=== PATIENT | male | born 1975 | race Caucasian/White ===

== ENCOUNTER → 2016-07-22 | Outpatient (CLI) | payer OTHER ==
[~2016-07-22] MED LIST: /DULO30CA OR; BABY81CH OR; BENA40TA2 OR; GLUC1000 OR; HYDR25TA6 PO; LYRI300C OR; NORV5TAB OR; SIMV20TA2 OR; VOLT1GEL EX; tricor OR
== END ==
LOC: M LAB 09:16
PROVIDERS: ATTEND Family Medicine
DX: E11.9 Type 2 diabetes mellitus without complications (principal)

== ENCOUNTER 2017-01-24 09:13 | Emergency (ER) | payer OTHER ==
[~2017-01-24] VITALS: Ht 172.7 cm; Wt 120.0 kg
[2017-01-24 09:14] VITALS: BP 115/81
[2017-01-24] MEDS ORDERED: ALOG25TA PO (09:23)
[2017-01-24] MEDS ORDERED: INVO300T PO (09:23)
[2017-01-24] MEDS ORDERED: ATOR1TAB19 PO (09:23)
[2017-01-24] MEDS ORDERED: BENA40TA7 PO (09:23)
[2017-01-24] MEDS ORDERED: METF10004 PO (09:23)
[2017-01-24] MEDS ORDERED: MUCI600T37 PO (11:12)
[2017-01-24] MEDS ORDERED: AUGM875T28 PO (11:12)
[2017-01-24] MEDS ORDERED: CLAR1TAB2 PO (11:12)
[2017-01-24] MEDS ORDERED: AUGMENTIN 875 MG TAB PO ONE (11:15)
[2017-01-24] MEDS ORDERED: IBUPROFEN 800 MG TAB PO ONE (11:15)
== END 2017-01-24 11:20 | disposition home or self-care (01) ==
LOC: M ED 09:13
DX: J01.90 Acute sinusitis, unspecified (principal); H66.93 Otitis media, unspecified, bilateral; K02.9 Dental caries, unspecified

== ENCOUNTER → 2017-05-01 | Outpatient (CLI) | payer OTHER ==
[2017-05-01 11:33] LABS: ESTIMATED AVERAGE GLUCOSE 246 MG/DL (60-110); HEMOGLOBIN A1c 10.2 %
[2017-05-01 11:37] LABS: ALBUMIN 3.9 GM/DL (3.2-5.2); ALBUMIN/GLOBULIN RATIO 1.22 (1.00-1.93); ALKALINE PHOSPHATASE 98 U/L (45-117); ALT/SGPT 34 U/L (12-78); ANION GAP 7 MEQ/L (8-16); AST/SGOT 18 U/L (7-37); BILIRUBIN,TOTAL 0.6 MG/DL (0.2-1.0); BLOOD UREA NITROGEN 16 MG/DL (7-18); CALCIUM LEVEL 8.5 MG/DL (8.5-10.1); CARBON DIOXIDE LEVEL 24 MEQ/L (21-32); CHLORIDE LEVEL 107 MEQ/L (98-107); CHOLESTEROL LEVEL 135 MG/DL (<200); CREATININE FOR GFR 0.88 MG/DL (0.70-1.30); GLOMERULAR FILTRATION RATE > 60.0 (>60); GLUCOSE, FASTING 239 MG/DL (70-105); HDL CHOLESTEROL 30 MG/DL (>40); NON-HDL-C 105 MG/DL; POTASSIUM SERUM 4.3 MEQ/L (3.5-5.1); SODIUM LEVEL 138 MEQ/L (136-145); TOTAL PROTEIN 7.1 GM/DL (6.4-8.2); TRIGLYCERIDES LEVEL 1032 MG/DL (<150)
== END ==
LOC: M LAB 10:28
DX: E11.8 Type 2 diabetes mellitus with unspecified complications (principal)
CPT/HCPCS: 80053

== ENCOUNTER → 2017-11-21 | Outpatient (CLI) | payer OTHER ==
[2017-11-21 14:45] LABS: ANION GAP 8 MEQ/L (8-16); BLOOD UREA NITROGEN 11 MG/DL (7-18); CALCIUM LEVEL 9.1 MG/DL (8.5-10.1); CARBON DIOXIDE LEVEL 25 MEQ/L (21-32); CHLORIDE LEVEL 109 MEQ/L (98-107); CREATININE FOR GFR 1.06 MG/DL (0.70-1.30); GLOMERULAR FILTRATION RATE > 60.0 (>60); GLUCOSE, FASTING 120 MG/DL (70-100); POTASSIUM SERUM 4.2 MEQ/L (3.5-5.1); SODIUM LEVEL 142 MEQ/L (136-145)
[2017-11-21 14:57] LABS: CREATININE, URINE 73.2 MG/DL; MALB URINE SIEMENS 29.4 MG/L; MAU/CREAT RATIO 40.1 MCG/MG (0.0-30.0)
[2017-11-21 15:52] LABS: ESTIMATED AVERAGE GLUCOSE 137 MG/DL (60-110); HEMOGLOBIN A1c 6.4 %
== END ==
LOC: M LAB 13:37
DX: E11.8 Type 2 diabetes mellitus with unspecified complications (principal)
CPT/HCPCS: 83036

== ENCOUNTER → 2018-05-28 | Outpatient (CLI) | payer OTHER ==
[~2018-05-28] MED LIST changes: +ALOG25TA PO; +ATOR1TAB19 PO; +AUGM875T28 PO; +BENA40TA7 PO; +CLAR1TAB2 PO; +INVO300T PO; +METF10004 PO; +MUCI600T37 PO
[2018-05-28 10:38] LABS: CREATININE, URINE 70.9 MG/DL; MALB URINE SIEMENS 38.5 MG/L; MAU/CREAT RATIO 54.3 MCG/MG (0.0-30.0)
[2018-05-28 10:43] LABS: ALT/SGPT 33 U/L (12-78); BILIRUBIN,TOTAL 0.7 MG/DL (0.2-1.0); BLOOD UREA NITROGEN 12 MG/DL (7-18); CALCIUM LEVEL 8.8 MG/DL (8.5-10.1); CARBON DIOXIDE LEVEL 28 MEQ/L (21-32); CHLORIDE LEVEL 103 MEQ/L (98-107); CHOLESTEROL LEVEL 140 MG/DL (<200); GLOMERULAR FILTRATION RATE > 60.0 (>60); GLUCOSE, FASTING 193 MG/DL (70-100); HDL CHOLESTEROL 34 MG/DL (>40); POTASSIUM SERUM 4.2 MEQ/L (3.5-5.1); SODIUM LEVEL 139 MEQ/L (136-145); TRIGLYCERIDES LEVEL 380 MG/DL (<150)
[2018-05-28 10:44] LABS: CHOLESTEROL RISK RATIO 4.117 (<5); LDL CHOLESTEROL 30 MG/DL (<100); NON-HDL-C 106 MG/DL; TOTAL PROTEIN 7.1 GM/DL (6.4-8.2)
== END ==
LOC: M LAB 09:15
PROVIDERS: ATTEND Family Medicine
DX: E78.5 Hyperlipidemia, unspecified (principal); E11.8 Type 2 diabetes mellitus with unspecified complications

== ENCOUNTER → 2018-11-20 | Outpatient (CLI) | payer OTHER ==
[~2018-11-20] MED LIST changes: -/DULO30CA OR; +CYMB1CAP5 OR
[2018-11-20 16:07] LABS: CHOLESTEROL LEVEL 125 MG/DL (<200); HDL CHOLESTEROL 29 MG/DL (>40); NON-HDL-C 96 MG/DL; TRIGLYCERIDES LEVEL 854 MG/DL (<150)
== END ==
LOC: M LAB 14:42
PROVIDERS: ATTEND Family Medicine
DX: E11.8 Type 2 diabetes mellitus with unspecified complications (principal)

== ENCOUNTER 2019-04-10 09:59 | Emergency (ER) | payer OTHER ==
[~2019-04-10] VITALS: Ht 172.7 cm; Wt 113.2 kg
[2019-04-10 09:59] VITALS: BP 142/77
[2019-04-10] MEDS ORDERED: GLIP10TA18 (10:06)
[2019-04-10] MEDS ORDERED: ELIM5CRE2 TOP (10:37)
[2019-04-10] MEDS ORDERED: PERMETHRIN 5% CREAM 60 GM TOP ONE (10:45)
== END 2019-04-10 10:58 | disposition home or self-care (01) ==
LOC: M ED 09:59
DX: B86 Scabies (principal); I10 Essential (primary) hypertension; G89.29 Other chronic pain; M54.9 Dorsalgia, unspecified; Z79.82 Long term (current) use of aspirin; Z79.84 Long term (current) use of oral hypoglycemic drugs; Z79.899 Other long term (current) drug therapy

== ENCOUNTER → 2019-10-26 | Outpatient (CLI) | payer OTHER ==
[~2019-10-26] MED LIST changes: +BENA40TA5 PO; -BENA40TA7 PO; +ELIM5CRE2 TOP; +GLIP10TA18
[2019-10-26 14:30] LABS: HEMATOCRIT 49.1 % (42.0-52.0); HEMOGLOBIN 16.1 g/dl (13.5-17.5); MEAN CORPUSCULAR HEMOGLOBIN 27.2 pg (27.0-33.0); MEAN CORPUSCULAR HGB CONC 32.8 g/dl (32.0-36.5); MEAN CORPUSCULAR VOLUME 83.1 fl (80.0-96.0); PLATELET COUNT, AUTOMATED 257 10^3/uL (150-450); RED BLOOD COUNT 5.91 10^6/uL (4.30-6.10); WHITE BLOOD COUNT 9.2 10^3/uL (4.0-10.0)
[2019-10-26 14:51] LABS: HEMOGLOBIN A1c 5.8 %
[2019-10-26 14:59] LABS: ALT/SGPT 29 U/L (12-78); BILIRUBIN,TOTAL 0.6 MG/DL (0.2-1.0); BLOOD UREA NITROGEN 14 MG/DL (7-18); CALCIUM LEVEL 8.9 MG/DL (8.5-10.1); CARBON DIOXIDE LEVEL 25 MEQ/L (21-32); CHLORIDE LEVEL 107 MEQ/L (98-107); CHOLESTEROL LEVEL 109 MG/DL (<200); CHOLESTEROL RISK RATIO 3.406 (<5); CPK CREATINE PHOSPHOKINASE 49 U/L (39-308); CREATININE FOR GFR 0.92 MG/DL (0.70-1.30); GLOMERULAR FILTRATION RATE > 60.0 (>60); GLUCOSE, FASTING 96 MG/DL (70-100); HDL CHOLESTEROL 32 MG/DL (>40); LDL CHOLESTEROL 23 MG/DL (<100); NON-HDL-C 77 MG/DL; POTASSIUM SERUM 4.1 MEQ/L (3.5-5.1); SODIUM LEVEL 139 MEQ/L (136-145); TOTAL PROTEIN 7.1 GM/DL (6.4-8.2); TRIGLYCERIDES LEVEL 269 MG/DL (<150); URIC ACID 4.8 MG/DL (3.5-7.2)
[2019-10-26 15:08] LABS: CREATININE, URINE 61.1 MG/DL; MALB URINE SIEMENS 12.8 MG/L; MAU/CREAT RATIO 20.9 MCG/MG (0.0-30.0)
== END ==
LOC: M LAB 13:42
PROVIDERS: ATTEND Family Medicine
DX: E78.2 Mixed hyperlipidemia (principal)

== ENCOUNTER → 2020-07-20 | Outpatient (REF) | payer OTHER ==
[2020-07-20 19:09] LABS: ALT/SGPT 33 U/L (12-78); BILIRUBIN,TOTAL 0.6 MG/DL (0.2-1.0); BLOOD UREA NITROGEN 19 MG/DL (7-18); CALCIUM LEVEL 9.3 MG/DL (8.5-10.1); CARBON DIOXIDE LEVEL 28 MEQ/L (21-32); CHLORIDE LEVEL 104 MEQ/L (98-107); CHOLESTEROL LEVEL 122 MG/DL (<200); CHOLESTEROL RISK RATIO 4.066 (<5); CREATININE FOR GFR 1.11 MG/DL (0.70-1.30); GLOMERULAR FILTRATION RATE > 60.0 (>60); GLUCOSE, FASTING 305 MG/DL (70-100); HDL CHOLESTEROL 30 MG/DL (>40); NON-HDL-C 92 MG/DL; POTASSIUM SERUM 3.9 MEQ/L (3.5-5.1); SODIUM LEVEL 139 MEQ/L (136-145); TOTAL PROTEIN 6.8 GM/DL (6.4-8.2); TRIGLYCERIDES LEVEL 560 MG/DL (<150)
[2020-07-20 19:30] LABS: HEMOGLOBIN A1c 6.9 %
== END ==
LOC: M LAB REF 16:36
PROVIDERS: ATTEND Family Medicine Addiction Medicine
DX: E11.69 Type 2 diabetes mellitus with other specified complication (principal)

== ENCOUNTER → 2022-01-20 | Outpatient (CLI) | payer OTHER ==
[~2022-01-20] MED LIST changes: -BENA40TA5 PO; +BENA40TA84 PO
== END ==
LOC: M RAD 09:52
PROVIDERS: ATTEND Family Medicine Addiction Medicine
DX: M25.561 Pain in right knee (principal)

== ENCOUNTER → 2022-04-12 | Outpatient (REF) | payer OTHER ==
[2022-04-12 17:08] LABS: HEMOGLOBIN A1c 8.5 % (4.0-6.0)
[2022-04-12 17:19] LABS: ALKALINE PHOSPHATASE 98 U/L (46-116); ALT/SGPT 27 U/L (7.0-40); AST/SGOT 14 U/L (<34); BILIRUBIN,TOTAL 0.9 MG/DL (0.3-1.2); BLOOD UREA NITROGEN 23 MG/DL (9-23); CALCIUM LEVEL 9.4 MG/DL (8.5-10.1); CARBON DIOXIDE LEVEL 26 MMOL/L (20-31); CHLORIDE LEVEL 98 MMOL/L (98-107); CHOLESTEROL LEVEL 115 MG/DL (<200); CREATININE FOR GFR 1.06 MG/DL (0.70-1.30); GLOMERULAR FILTRATION RATE > 60.0 (>60); GLUCOSE, FASTING 302 MG/DL (60-100); HDL CHOLESTEROL 30.2 MG/DL (>40); NON-HDL-C 85 MG/DL; POTASSIUM SERUM 5.1 MMOL/L (3.5-5.1); SODIUM LEVEL 134 MMOL/L (136-145); TOTAL PROTEIN 7.2 G/DL (5.7-8.2); TRIGLYCERIDES LEVEL 479 MG/DL (<150)
[2022-04-12 17:20] LABS: THYROID STIMULATING HORMONE 4.381 uIU/ML (0.55-4.78)
== END ==
LOC: M LAB REF 16:19
PROVIDERS: ATTEND Family Medicine Addiction Medicine
DX: E11.9 Type 2 diabetes mellitus without complications (principal)

== ENCOUNTER → 2022-07-19 | Outpatient (REF) | payer OTHER ==
[2022-07-19 19:16] LABS: ALKALINE PHOSPHATASE 85 U/L (46-116); ALT/SGPT 28 U/L (7.0-40); AST/SGOT 13 U/L (<34); BILIRUBIN,TOTAL 0.9 MG/DL (0.3-1.2); BLOOD UREA NITROGEN 19 MG/DL (9-23); CARBON DIOXIDE LEVEL 24 MMOL/L (20-31); CHLORIDE LEVEL 104 MMOL/L (98-107); CHOLESTEROL LEVEL 105 MG/DL (<200); CHOLESTEROL RISK RATIO 3.39 (<5); CREATININE FOR GFR 0.86 MG/DL (0.70-1.30); GLOMERULAR FILTRATION RATE > 60.0 (>60); GLUCOSE, FASTING 211 MG/DL (60-100); HDL CHOLESTEROL 30.9 MG/DL (>40); NON-HDL-C 74.1 MG/DL; POTASSIUM SERUM 4.5 MMOL/L (3.5-5.1); SODIUM LEVEL 137 MMOL/L (136-145); TOTAL PROTEIN 6.8 G/DL (5.7-8.2); TRIGLYCERIDES LEVEL 376 MG/DL (<150)
[2022-07-19 19:19] LABS: THYROID STIMULATING HORMONE 3.703 uIU/ML (0.55-4.78)
[2022-07-19 19:34] LABS: HEMOGLOBIN A1c 8.6 % (4.0-6.0)
== END ==
LOC: M LAB REF 16:35
PROVIDERS: ATTEND Family Medicine Addiction Medicine
DX: E11.9 Type 2 diabetes mellitus without complications (principal)

== ENCOUNTER → 2022-11-01 | Outpatient (REF) | payer OTHER ==
[2022-11-01 12:58] LABS: CREATININE, URINE 76.2 MG/DL; MALB URINE SIEMENS < 3.0 MG/L; MAU/CREAT RATIO 3.9 MCG/MG (0.0-30.0)
[2022-11-01 18:36] LABS: ALBUMIN 3.9 G/DL (3.2-5.2); ALKALINE PHOSPHATASE 98 U/L (46-116); ALT/SGPT 27 U/L (7.0-40); AST/SGOT 12 U/L (<34); BILIRUBIN,TOTAL 0.9 MG/DL (0.3-1.2); BLOOD UREA NITROGEN 18 MG/DL (9-23); CALCIUM LEVEL 8.9 MG/DL (8.5-10.1); CARBON DIOXIDE LEVEL 21 MMOL/L (20-31); CHLORIDE LEVEL 106 MMOL/L (98-107); CHOLESTEROL LEVEL 111 MG/DL (<200); CHOLESTEROL RISK RATIO 4.08 (<5); CREATININE FOR GFR 0.92 MG/DL (0.70-1.30); GLOMERULAR FILTRATION RATE > 60.0 (>60); GLUCOSE, FASTING 188 MG/DL (60-100); HDL CHOLESTEROL 27.2 MG/DL (>40); LDL CHOLESTEROL 11.4 MG/DL (<100); NON-HDL-C 83.8 MG/DL; POTASSIUM SERUM 4.3 MMOL/L (3.5-5.1); SODIUM LEVEL 139 MMOL/L (136-145); TOTAL PROTEIN 6.9 G/DL (5.7-8.2); TRIGLYCERIDES LEVEL 362 MG/DL (<150)
[2022-11-01 18:38] LABS: THYROID STIMULATING HORMONE 3.885 uIU/ML (0.55-4.78)
== END ==
LOC: M LAB REF 12:00
PROVIDERS: ATTEND Family Medicine Addiction Medicine
DX: E11.9 Type 2 diabetes mellitus without complications (principal)

== ENCOUNTER → 2023-02-14 | Outpatient (REF) | payer OTHER ==
[2023-02-14 13:47] LABS: ALKALINE PHOSPHATASE 96 U/L (46-116); ALT/SGPT 19 U/L (7.0-40); AST/SGOT 12 U/L (<34); BILIRUBIN,TOTAL 0.9 MG/DL (0.3-1.2); BLOOD UREA NITROGEN 17 MG/DL (9-23); CALCIUM LEVEL 9.4 MG/DL (8.5-10.1); CARBON DIOXIDE LEVEL 30 MMOL/L (20-31); CHLORIDE LEVEL 100 MMOL/L (98-107); CHOLESTEROL LEVEL 100 MG/DL (<200); CREATININE FOR GFR 0.98 MG/DL (0.70-1.30); GLOMERULAR FILTRATION RATE > 60.0 (>60); GLUCOSE, FASTING 169 MG/DL (60-100); POTASSIUM SERUM 4.1 MMOL/L (3.5-5.1); SODIUM LEVEL 138 MMOL/L (136-145); THYROID STIMULATING HORMONE 3.478 uIU/ML (0.55-4.78); TOTAL PROTEIN 6.9 G/DL (5.7-8.2); TRIGLYCERIDES LEVEL 329 MG/DL (<150)
[2023-02-14 14:02] LABS: CHOLESTEROL RISK RATIO 3.42 (<5); HDL CHOLESTEROL 29.2 MG/DL (>40); NON-HDL-C 70.8 MG/DL
[2023-02-14 14:05] LABS: CREATININE, URINE 62.5 MG/DL
[2023-02-14 14:07] LABS: MALB URINE SIEMENS < 3.0 MG/L; MAU/CREAT RATIO 4.8 MCG/MG (0.0-30.0)
== END ==
LOC: M LAB REF 12:21
PROVIDERS: ATTEND Family Medicine Addiction Medicine
DX: E11.9 Type 2 diabetes mellitus without complications (principal)

== ENCOUNTER → 2023-05-22 | Outpatient (REF) | payer OTHER ==
[2023-05-22 14:06] LABS: HEMOGLOBIN A1c 8.3 % (4.0-6.0)
[2023-05-22 14:18] LABS: ALBUMIN 3.8 G/DL (3.2-5.2); ALKALINE PHOSPHATASE 84 U/L (46-116); ALT/SGPT 19 U/L (7.0-40); AST/SGOT 8 U/L (<34); BILIRUBIN,TOTAL 0.9 MG/DL (0.3-1.2); BLOOD UREA NITROGEN 19 MG/DL (9-23); CALCIUM LEVEL 9.1 MG/DL (8.5-10.1); CARBON DIOXIDE LEVEL 24 MMOL/L (20-31); CHLORIDE LEVEL 103 MMOL/L (98-107); CHOLESTEROL LEVEL 108 MG/DL (<200); CREATININE FOR GFR 0.81 MG/DL (0.70-1.30); GLOMERULAR FILTRATION RATE > 60.0 (>60); GLUCOSE, FASTING 224 MG/DL (60-100); HDL CHOLESTEROL 31.7 MG/DL (>40); NON-HDL-C 76.3 MG/DL; POTASSIUM SERUM 4.2 MMOL/L (3.5-5.1); SODIUM LEVEL 135 MMOL/L (136-145); TRIGLYCERIDES LEVEL 414 MG/DL (<150)
== END ==
LOC: M LAB REF 13:01
PROVIDERS: ATTEND Family Medicine Addiction Medicine
DX: E11.9 Type 2 diabetes mellitus without complications (principal)

== ENCOUNTER → 2023-08-07 | Outpatient (REF) | payer OTHER ==
[2023-08-07 14:38] LABS: ALBUMIN 3.8 G/DL (3.2-5.2); ALKALINE PHOSPHATASE 105 U/L (46-116); ALT/SGPT 33 U/L (7.0-40); AST/SGOT 12 U/L (<34); BILIRUBIN,TOTAL 1.4 MG/DL (0.3-1.2); BLOOD UREA NITROGEN 23 MG/DL (9-23); CALCIUM LEVEL 9.4 MG/DL (8.5-10.1); CARBON DIOXIDE LEVEL 26 MMOL/L (20-31); CHLORIDE LEVEL 101 MMOL/L (98-107); CHOLESTEROL LEVEL 92 MG/DL (<200); CREATININE FOR GFR 0.94 MG/DL (0.70-1.30); GLOMERULAR FILTRATION RATE > 60.0 (>60); GLUCOSE, FASTING 150 MG/DL (60-100); HDL CHOLESTEROL 27.8 MG/DL (>40); NON-HDL-C 64.2 MG/DL; POTASSIUM SERUM 4.3 MMOL/L (3.5-5.1); SODIUM LEVEL 136 MMOL/L (136-145); THYROID STIMULATING HORMONE 2.802 uIU/ML (0.55-4.78); TOTAL PROTEIN 6.9 G/DL (5.7-8.2); TRIGLYCERIDES LEVEL 353 MG/DL (<150)
== END ==
LOC: M LAB REF 13:01
PROVIDERS: ATTEND Family Medicine Addiction Medicine
DX: E11.9 Type 2 diabetes mellitus without complications (principal)

== ENCOUNTER → 2023-12-01 | Outpatient (REF) | payer OTHER ==
[2023-12-01 13:46] LABS: ALBUMIN 3.4 G/DL (3.2-5.2); ALKALINE PHOSPHATASE 102 U/L (46-116); ALT/SGPT 12 U/L (7.0-40); AST/SGOT < 8 U/L (<34); BILIRUBIN,TOTAL 0.6 MG/DL (0.3-1.2); BLOOD UREA NITROGEN 88 MG/DL (9-23); CALCIUM LEVEL 8.4 MG/DL (8.5-10.1); CARBON DIOXIDE LEVEL 21 MMOL/L (20-31); CHLORIDE LEVEL 102 MMOL/L (98-107); CHOLESTEROL LEVEL 123 MG/DL (<200); GLOMERULAR FILTRATION RATE 29.4 (>60); GLUCOSE, FASTING 178 MG/DL (60-100); HDL CHOLESTEROL 23.2 MG/DL (>40); NON-HDL-C 99.8 MG/DL; POTASSIUM SERUM 3.6 MMOL/L (3.5-5.1); SODIUM LEVEL 134 MMOL/L (136-145); THYROID STIMULATING HORMONE 7.005 uIU/ML (0.55-4.78); TOTAL PROTEIN 6.8 G/DL (5.7-8.2); TRIGLYCERIDES LEVEL 415 MG/DL (<150)
[2023-12-01 13:51] LABS: HEMOGLOBIN A1c 8.4 % (4.0-6.0)
== END ==
LOC: M LAB REF 12:22
PROVIDERS: ATTEND Family Medicine Addiction Medicine
DX: E11.9 Type 2 diabetes mellitus without complications (principal)

== ENCOUNTER → 2023-12-06 | Outpatient (REF) | payer OTHER ==
[2023-12-06 17:18] LABS: BLOOD UREA NITROGEN 23 MG/DL (9-23); CALCIUM LEVEL 8.7 MG/DL (8.5-10.1); CARBON DIOXIDE LEVEL 22 MMOL/L (20-31); CHLORIDE LEVEL 108 MMOL/L (98-107); CREATININE FOR GFR 1.06 MG/DL (0.70-1.30); GLOMERULAR FILTRATION RATE > 60.0 (>60); GLUCOSE, FASTING 187 MG/DL (60-100); POTASSIUM SERUM 3.5 MMOL/L (3.5-5.1); SODIUM LEVEL 136 MMOL/L (136-145)
== END ==
LOC: M LAB REF 16:37
PROVIDERS: ATTEND Family Medicine Addiction Medicine
DX: E11.9 Type 2 diabetes mellitus without complications (principal)

== ENCOUNTER → 2024-02-19 | Outpatient (REF) | payer OTHER ==
[2024-02-19 13:55] LABS: ALBUMIN 3.8 G/DL (3.2-5.2); ALKALINE PHOSPHATASE 99 U/L (40-129); ALT/SGPT 27 U/L (7.0-40); AST/SGOT 10 U/L (<34); BILIRUBIN,TOTAL 1.1 MG/DL (0.3-1.2); BLOOD UREA NITROGEN 14 MG/DL (9-23); CALCIUM LEVEL 9.6 MG/DL (8.5-10.1); CARBON DIOXIDE LEVEL 25 MMOL/L (20-31); CHLORIDE LEVEL 103 MMOL/L (98-107); CHOLESTEROL LEVEL 109 MG/DL (<200); CHOLESTEROL RISK RATIO 3.52 (<5); CREATININE FOR GFR 0.98 MG/DL (0.70-1.30); GLOMERULAR FILTRATION RATE > 60.0 (>56); GLUCOSE, FASTING 220 MG/DL (60-100); HDL CHOLESTEROL 30.9 MG/DL (>40); LDL CHOLESTEROL 18.5 MG/DL (<100); NON-HDL-C 78.1 MG/DL; POTASSIUM SERUM 3.9 MMOL/L (3.5-5.1); SODIUM LEVEL 140 MMOL/L (136-145); TOTAL PROTEIN 6.7 G/DL (5.7-8.2); TRIGLYCERIDES LEVEL 298 MG/DL (<150)
[2024-02-19 13:56] LABS: THYROID STIMULATING HORMONE 1.843 uIU/ML (0.55-4.78)
[2024-02-19 14:11] LABS: HEMOGLOBIN A1c 7.8 % (4.0-6.0)
== END ==
LOC: M LAB REF 13:06
PROVIDERS: ATTEND Family Medicine Addiction Medicine
DX: E11.9 Type 2 diabetes mellitus without complications (principal)

== ENCOUNTER 2024-04-03 10:13 | Outpatient (RCR) | payer OTHER | END 2024-04-16 | LOC: M PT 10:13 | PROVIDERS: ATTEND Family Medicine Addiction Medicine | DX: M75.42 Impingement syndrome of left shoulder (principal) ==

== ENCOUNTER → 2024-05-14 | Outpatient (REF) | payer OTHER ==
[2024-05-14 13:45] LABS: CREATININE, URINE 148.3 MG/DL
[2024-05-14 13:46] LABS: MAU/CREAT RATIO 18.2 MCG/MG (0.0-30.0)
[2024-05-14 15:33] LABS: ALBUMIN 3.8 G/DL (3.2-5.2); ALKALINE PHOSPHATASE 110 U/L (40-129); ALT/SGPT 29 U/L (7.0-40); AST/SGOT 16 U/L (<34); BLOOD UREA NITROGEN 17 MG/DL (9-23); CALCIUM LEVEL 8.9 MG/DL (8.5-10.1); CARBON DIOXIDE LEVEL 27 MMOL/L (20-31); CHLORIDE LEVEL 99 MMOL/L (98-107); CHOLESTEROL LEVEL 95 MG/DL (<200); CHOLESTEROL RISK RATIO 3.29 (<5); CREATININE FOR GFR 0.87 MG/DL (0.70-1.30); GLOMERULAR FILTRATION RATE > 60.0 (>56); GLUCOSE, FASTING 342 MG/DL (60-100); HDL CHOLESTEROL 28.8 MG/DL (>40); LDL CHOLESTEROL 2.6 MG/DL (<100); NON-HDL-C 66.2 MG/DL; POTASSIUM SERUM 4.1 MMOL/L (3.5-5.1); SODIUM LEVEL 137 MMOL/L (136-145); TOTAL PROTEIN 6.9 G/DL (5.7-8.2); TRIGLYCERIDES LEVEL 318 MG/DL (<150)
[2024-05-14 15:59] LABS: HEMOGLOBIN A1c 11.1 % (4.0-6.0)
== END ==
LOC: M LAB REF 12:02
PROVIDERS: ATTEND Family Medicine Addiction Medicine
DX: E11.9 Type 2 diabetes mellitus without complications (principal)

== ENCOUNTER 2024-05-15 09:46 | Outpatient (RCR) | payer OTHER | END 2024-05-17 | LOC: M PT 09:46 | PROVIDERS: ATTEND Family Medicine Addiction Medicine | DX: M75.42 Impingement syndrome of left shoulder (principal) ==

== ENCOUNTER 2024-05-22 09:16 | Outpatient (RCR) | payer OTHER ==
[~2024-05-22 09:16] MED LIST changes: -ELIM5CRE2 TOP; +PERM60CR8 TOP
== END 2024-06-14 ==
LOC: M PT 09:16
PROVIDERS: ATTEND Family Medicine Addiction Medicine
DX: M75.42 Impingement syndrome of left shoulder (principal)

== ENCOUNTER → 2024-08-22 | Outpatient (REF) | payer OTHER ==
[~2024-08-22] MED LIST changes: +GLIP-320; -GLIP10TA18
[2024-08-22 12:51] LABS: HEMOGLOBIN A1c 11.8 % (4.0-6.0)
[2024-08-22 13:08] LABS: CREATININE, URINE 54.9 MG/DL
[2024-08-22 13:10] LABS: MAU/CREAT RATIO 7.2 MCG/MG (0.0-30.0)
[2024-08-22 13:14] LABS: THYROID STIMULATING HORMONE 6.614 uIU/ML (0.55-4.78)
[2024-08-22 14:00] LABS: ALKALINE PHOSPHATASE 111 U/L (40-129); ALT/SGPT 27 U/L (7.0-40); AST/SGOT 11 U/L (<34); BILIRUBIN,TOTAL 1.2 MG/DL (0.3-1.2); BLOOD UREA NITROGEN 17 MG/DL (9-23); CALCIUM LEVEL 9.1 MG/DL (8.5-10.1); CARBON DIOXIDE LEVEL 26 MMOL/L (20-31); CHLORIDE LEVEL 99 MMOL/L (98-107); CHOLESTEROL LEVEL 112 MG/DL (<200); CHOLESTEROL RISK RATIO 3.82 (<5); CREATININE FOR GFR 0.89 MG/DL (0.70-1.30); GLOMERULAR FILTRATION RATE > 90.0 (>56); GLUCOSE, FASTING 343 MG/DL (60-100); HDL CHOLESTEROL 29.3 MG/DL (>40); NON-HDL-C 82.7 MG/DL; POTASSIUM SERUM 4.4 MMOL/L (3.5-5.1); SODIUM LEVEL 137 MMOL/L (136-145); TOTAL PROTEIN 6.9 G/DL (5.7-8.2); TRIGLYCERIDES LEVEL 594 MG/DL (<150)
== END ==
LOC: M LAB REF 11:41
PROVIDERS: ATTEND Family Medicine Addiction Medicine
DX: E11.9 Type 2 diabetes mellitus without complications (principal)

== ENCOUNTER → 2024-11-20 | Outpatient (REF) | payer OTHER ==
[2024-11-20 13:09] LABS: ALT/SGPT 21 U/L (7.0-40); AST/SGOT 14 U/L (<34); CALCIUM LEVEL 8.9 MG/DL (8.5-10.1); CARBON DIOXIDE LEVEL 25 MMOL/L (20-31); CHLORIDE LEVEL 101 MMOL/L (98-107); CHOLESTEROL LEVEL 107 MG/DL (<200); CHOLESTEROL RISK RATIO 3.74 (<5); CREATININE FOR GFR 0.90 MG/DL (0.70-1.30); GLOMERULAR FILTRATION RATE > 90.0 (>56); NON-HDL-C 78.4 MG/DL; POTASSIUM SERUM 4.0 MMOL/L (3.5-5.1); SODIUM LEVEL 136 MMOL/L (136-145); TRIGLYCERIDES LEVEL 412 MG/DL (<150)
[2024-11-20 13:19] LABS: CREATININE, URINE 80.4 MG/DL; MALB URINE SIEMENS < 3.0 MG/L
[2024-11-20 13:33] LABS: ESTIMATED AVERAGE GLUCOSE 295.0 MG/DL (60-110)
== END ==
LOC: M LAB REF 11:59
PROVIDERS: ATTEND Family Medicine Addiction Medicine
DX: E11.9 Type 2 diabetes mellitus without complications (principal)

== ENCOUNTER → 2025-02-27 | Outpatient (REF) | payer OTHER ==
[2025-02-27 13:12] LABS: ALT/SGPT 34.0 U/L (7.0-40); AST/SGOT 19.0 U/L (<34); CALCIUM LEVEL 8.7 MG/DL (8.5-10.1); CARBON DIOXIDE LEVEL 26.0 MMOL/L (20-31); CHLORIDE LEVEL 99.0 MMOL/L (98-107); CHOLESTEROL LEVEL 95.0 MG/DL (<200); CHOLESTEROL RISK RATIO 3.33 (<5); CREATININE FOR GFR 1.01 MG/DL (0.70-1.30); GLOMERULAR FILTRATION RATE 90.0 (>56); LDL CHOLESTEROL 2.3 MG/DL (<100); NON-HDL-C 66.5 MG/DL; POTASSIUM SERUM 4.0 MMOL/L (3.5-5.1); SODIUM LEVEL 137.0 MMOL/L (136-145); TRIGLYCERIDES LEVEL 321.0 MG/DL (<150)
[2025-02-27 13:49] LABS: ESTIMATED AVERAGE GLUCOSE 315.0 MG/DL (60-110)
== END ==
LOC: M LAB REF 12:15
PROVIDERS: ATTEND Family Medicine Addiction Medicine
DX: E11.69 Type 2 diabetes mellitus with other specified complication (principal)